=== PATIENT | female | born 2000 | race Caucasian/White ===

== ENCOUNTER 2022-04-07 06:23 | Observation (INO) | END 2022-04-07 10:06 | disposition home or self-care (01) | LOC: 1NENULAB | PROVIDERS: ADMIT Registered Nurse; ATTEND Registered Nurse ==

== ENCOUNTER → 2022-06-27 00:48 | Observation (INO) ==
[2022-06-27 00:15] LABS: Bacteria,Urine Many per hpf (None-Few); Bilirubin,Urine Negative (Negative); Blood,Urine Negative (Negative); Clarity,Urine Ex.Turbid (Clear); Color,Urine Yellow (Yellow); Glucose,Urine (UA) Normal (Normal); Ketones,Urine Negative (Negative); Leukocyte Esterase,Urine Small (Negative); Mucus,Urine Few per lpf (None-Few); Nitrite,Urine Negative (Negative); PH,Urine 7.5 pH Units (5.0-8.0); Protein,Urine 30 mg/dL (Neg-Trace); RBC,Urine 0-3 per hpf (0-3); Specific Gravity,Urine 1.028 (1.010-1.025); Squamous Epithelial Cell,Urine Few per hpf (None-Few)
== END | disposition home or self-care (01) ==
LOC: 1NENULAB
PROVIDERS: ADMIT Advanced Practice Midwife; ATTEND Advanced Practice Midwife

== ENCOUNTER 2022-06-29 20:01 | Inpatient (IN) ==
[~2022-06-29 20:01] MED LIST: Famotidine 20 MG/2 ML VIAL IVP PRN; Lidocaine 1% 20 ML MDV INFILT PRN; Metoclopramide 10 MG/2 ML VIAL IVP PRN; Naloxone 0.4 MG/ML INJ IVP PRN; Penicillin G Potassium 5,000,000 UNIT in 0.9 % Sodium Chloride Mini Bag 100 ML IVPB ONE
[2022-06-29] MEDS ORDERED: Oxytocin 30 UNIT/503 ML BAG IVC SCH (20:15)
[2022-06-29] MEDS: Ringers Solution, Lactated 1,000 ML IVC SCH (20:30)
[2022-06-29 21:27] LABS: Basophils % 0.2 %; Eosinophils # 0.1 K/mcL (0.0-0.6); Eosinophils % 0.7 %; Hematocrit 35.4 % (35.3-44.9); Hemoglobin 11.2 g/dL (11.5-15.4); Immature Granulocytes % 0.2 % (0-4); Lymphocytes # 1.7 K/mcL (0.6-4.6); Lymphocytes % 13.5 %; Mean Corpuscular HGB Conc 31.6 g/dL (31.6-35.5); Mean Corpuscular Hemoglobin 26.9 pg (28.0-33.3); Mean Corpuscular Volume 84.9 fL (83.0-100.0); Mean Platelet Volume 12.8 fL (9.4-12.4); Monocytes # 0.9 K/mcL (0.0-1.3); Neutrophils # 9.8 K/mcL (1.6-8.9); Platelet Count 214 K/mcL (140-400); Red Blood Count 4.17 M/mcL (3.82-4.97); Red Cell Distribution Width 17.6 % (11.5-14.5); Segmented Neutrophils % 78.4 %; White Blood Count 12.5 K/mcL (4.3-11.1)
[2022-06-29 21:35] LABS: Amphetamine Screen,Urine Negative ng/mL (Cutoff=1000); Barbiturate Screen,Urine Negative ng/mL (Cutoff=200); Benzodiazepines Screen,Urine Negative ng/mL (Cutoff=200); Cannabinoid Screen,Urine Negative ng/mL (Cutoff = 50); Cocaine Screen,Urine Negative ng/mL (Cutoff= 300); Opiate Screen,Urine Negative ng/mL (Cutoff=300); Phencyclidine Screen,Urine Negative ng/mL (Cutoff=25)
[2022-06-30] MEDS: Penicillin G Potassium 2,500,000 UNIT/105 ML MLS IVPB SCH ×3 (00:41→09:28)
[2022-06-30] MEDS ORDERED: Famotidine 20 MG/2 ML VIAL IVP ONE (01:52)
[2022-06-30] MEDS: *HR* Nalbuphine 10 MG/ML AMPUL IV PRN ×2 (03:03→06:13)
[2022-06-30] MEDS ORDERED: EPHEDrine 50 MG/ML VIAL IVP PRN (06:43)
[2022-06-30] MEDS ORDERED: Epidural Premix (fent/bupiv) 110 ML EP SCH (06:45)
[2022-06-30] MEDS ORDERED: Ondansetron 4 MG/2 ML VIAL IVP ONE ×2 (07:59→12:16)
[2022-06-30] MEDS: Ringers Solution, Lactated 1,000 ML IVC SCH (09:48)
[2022-06-30 13:31] LABS: Protein/Creatinine Ratio,Urine 0.22 mg/mg (0.00-0.20)
[2022-06-30 13:41] LABS: Alanine Aminotransferase 15 Units/L (7-52); Aspartate Amino Transferase 10 Units/L (13-39); BUN/Creatinine Ratio 14 (6-26); Blood Urea Nitrogen 7 mg/dL (6-20); Glucose 96 mg/dL (70-105); Lactate Dehydrogenase 93 Units/L (140-271); Uric Acid 3.2 mg/dL (2.3-7.6); eGFR For African Americans > 60; eGFR For Non-African Americans > 60
[2022-06-30] MEDS ORDERED: Oxytocin 30 UNIT/503 ML BAG IVC SCH (15:18)
[2022-06-30] MEDS ORDERED: Ondansetron ODT 4 MG TAB.RAPDIS SL PRN (15:18)
[2022-06-30] MEDS: Lanolin 7 G OINT...G. TP PRN (18:49)
[2022-06-30] MEDS: Benzocaine/Menthol 56 GM AEROSOL SPRAY TP PRN (18:49)
[2022-06-30] MEDS: Ibuprofen 600 MG TABLET PO SCH (18:50)
[2022-06-30] MEDS: Acetaminophen 325 MG TABLET PO SCH (18:50)
[2022-07-01] MEDS: Ibuprofen 600 MG TABLET PO SCH ×3 (03:25→17:44)
[2022-07-01] MEDS: Acetaminophen 325 MG TABLET PO SCH ×3 (03:25→17:44)
[2022-07-01] MEDS ORDERED: Prenatal Vit/FA 1 EACH TABLET PO SCH (09:00)
[2022-07-01] MEDS ORDERED: Famotidine 20 MG TABLET PO SCH (11:00)
[2022-07-01] MEDS: Famotidine 20 MG TABLET PO SCH ×2 (11:40→17:44)
[2022-07-01 15:38] VITALS: BP 98/61; PULSE 87; TEMP 98; O2SAT 98
[2022-07-01] MEDS: Lanolin 7 G OINT...G. TP PRN (17:44)
[2022-07-01] MEDS: Benzocaine/Menthol 56 GM AEROSOL SPRAY TP PRN (17:44)
== END 2022-07-01 18:03 | disposition home or self-care (01) | DRG 542 ==
LOC: 1NENULAB → 1NENUOBS 06-30 17:49
PROVIDERS: ADMIT Advanced Practice Midwife; ATTEND Advanced Practice Midwife